=== PATIENT | female | born 1965 | race Caucasian/White ===

== ENCOUNTER 2017-09-15 09:27 | Emergency (ER) | payer OTHER ==
[2017-09-15 09:33] VITALS: BP 183/107
--- NOTE | 2017-09-15 10:10 | ER Document Report ---
ED Extremity Problem, Lower - General Mode of Arrival: Ambulatory Information source: Patient TRAVEL OUTSIDE OF THE [place] IN LAST 30 DAYS: No - HPI Patient complains to provider of: Pain Location: Foot - base of left heel Occurred: Other - 1 week ago Associated symptoms: Other - see notes above <REX MCKEON - Last Filed: 09/15/17 10:35> <MACARIO WALTER - Last Filed: 09/15/17 20:54> - General Chief Complaint: Ankle Pain Stated Complaint: FOOT PAIN Time Seen by Provider: 09/15/17 09:57 Notes: 52-year-old female presents to the ED complaining of left heel pain that started 1 week ago but exacerbated yesterday. Patient reports that the pain is exacerbated with walking and it does not get any better after walking an extended period of time. Patient states that the pain is now radiating up her left posterior calf. Patient denies nausea, vomiting, or fever. 1 year ago patient saw a clinical exercise specialist for possible heel spurs and was told that her Achilles's tendon was acting up instead and was given various exercises to perform to help with the pain. Patient denies any recent falls or injuries. (REX MCKEON) - Related Data Allergies/Adverse Reactions: No Known Allergies Allergy (Unverified 09/15/17 09:29) Home Medications: Current Home Medications Ibuprofen/Pseudoephedrine HCl [Advil Cold & Sinus Caplet] 1 each PO BID PRN 11/01 [History] Past Medical History - General Information source: Patient - Social History Smoking Status: Unknown if Ever Smoked Chew tobacco use (# tins/day): No Frequency of alcohol use: None Drug Abuse: None Patient has suicidal ideation: No Patient has homicidal ideation: No Renal/ Medical History: Denies: Hx Peritoneal Dialysis Past Surgical History: Reports: Hx Orthopedic Surgery - right femur <REX MCKEON - Last Filed: 09/15/17 10:35> - Social History Family History: None <MACARIO WALTER - Last Filed: 09/15/17 20:54> Review of Systems - Review of Systems Constitutional: No symptoms reported EENT: No symptoms reported Cardiovascular: No symptoms reported Respiratory: No symptoms reported Gastrointestinal: No symptoms reported Genitourinary: No symptoms reported Female Genitourinary: No symptoms reported Musculoskeletal: See HPI, Other - left heel pain which radiates up the posterior left calf. Skin: No symptoms reported Hematologic/Lymphatic: No symptoms reported Neurological/Psychological: No symptoms reported -: Yes All other systems reviewed and negative <REX MCKEON - Last Filed: 09/15/17 10:35> Physical Exam - General General appearance: Alert In distress: None - HEENT Head: Normocephalic, Atraumatic Eyes: Normal Extraocular movements intact: Yes Pupils: PERRL - Respiratory Respiratory status: No respiratory distress - Cardiovascular Rhythm: Regular Pulses: Normal: Dorsalis pedis - 2+ - Abdominal Inspection: Normal - Extremities General upper extremity: Normal inspection, Normal color General lower extremity: Normal weight bearing. No: Normal inspection - see foot exam below Foot: Tender - Tenderness to palpation limited to the left heel, Other - No evidence of erythema, induration, contusion, or infection.. No: Normal - Neurological Neuro grossly intact: Yes Cognition: Normal Orientation: AAOx4 [place] Coma Scale Eye Opening: Spontaneous [place] Coma Scale Verbal: Oriented [place] Coma Scale Motor: Obeys Commands [place] Coma Scale Total: 15 Speech: Normal - Psychological Associated symptoms: Normal affect, Normal mood - Skin Skin Temperature: Warm Skin Moisture: Dry Skin Color: Normal <REX MCKEON - Last Filed: 09/15/17 10:35> - Vital signs Vitals: Temp Pulse Resp BP Pulse Ox 97.6 F 83 20 183/107 H 96 09/15/17 09:32 09/15/17 09:32 09/15/17 09:32 09/15/17 09:32 09/15/17 09:32 Course <LINDAREX - Last Filed: 09/15/17 10:35> <MACARIO WALTER - Last Filed: 09/15/17 20:54> - Re-evaluation Re-evalutation: 09/15/17 10:29 Patient appears to have acute on chronic left heel pain consistent with bone spurs. Will provide 5 day Dosepak of steroids and follow-up with primary care physician for reevaluation within the next week. (MACARIO WALTER) - Vital Signs Vital signs: Temp Pulse Resp BP Pulse Ox 97.6 F 83 20 183/107 H 96 09/15/17 09:32 09/15/17 09:32 09/15/17 09:32 09/15/17 09:32 09/15/17 09:32 Discharge <REX MCKEON - Last Filed: 09/15/17 10:35> <MACARIO WALTER - Last Filed: 09/15/17 20:54> - Discharge Clinical Impression: Heel spur Qualifiers: Laterality: right Qualified Code(s): M77.31 - Calcaneal spur, right foot Condition: Stable Disposition: HOME, SELF-CARE Instructions: Plantar Fasciitis or Heel Spur ([facility]) Additional Instructions: Follow up with your primary care provider in 3-5 days or ED if worsening of symptoms. Prescriptions: Prednisone [Deltasone 20 mg Tablet] 2 tab PO DAILY 5 Days #10 tablet Referrals: JONATHON BARKER MD [Primary Care Provider] - Follow up as needed Scribe Documentation - Scribe Written by Jeffe:: Genesis Cesar, 09/15/2017 1052 acting as scribe for :: Param <REX MCKEON - Last Filed: 09/15/17 10:35>
== END 2017-09-15 10:33 | disposition home or self-care (01) ==
LOC: ER 09:27
DX: M77.31 Calcaneal spur, right foot (principal); M79.672 Pain in left foot
CPT/HCPCS: 99283

== ENCOUNTER 2018-11-13 10:49 | Day surgery (SDC) | payer OTHER ==
[~2018-11-13 10:49] MED LIST: LIDOCAINE 2% INJ-PF (20 MG/ML) 10 ML AMPUL ONE; ONDANSETRON HCL INJ/PF 4 MG/2 ML SDV ONE; PROPOFOL INJ 200 MG/20 ML VIAL IV ONE
[2018-11-13] MEDS ORDERED: MIDAZOLAM 2 MG/2 ML INJ ONE (11:57)
[2018-11-13] MEDS ORDERED: FENTANYL CITRATE INJ/PF 100 MCG/2 ML AMPUL IV PRN ×3 (13:59)
[2018-11-13] MEDS ORDERED: MEPERIDINE HCL/PF INJ 25 MG/1 ML DISP.SYRIN IV PRN (13:59)
[2018-11-13] MEDS ORDERED: DIPHENHYDRAMINE HCL 50 MG/ML VIAL IV PRN (13:59)
[2018-11-13] MEDS ORDERED: PROMETHAZINE HCL INJ 25 MG/1 ML VIAL IV PRN ×2 (13:59)
[2018-11-13 14:41] VITALS: BP 152/80
--- NOTE | 2018-11-13 14:47 | Operative Report ---
Operative Report Operative Report: The risks, benefits and alternatives of the procedure including the risk of bleeding, perforation requiring surgery have been explained to the patient in detail and informed consent has been obtained. Patient is brought back to the operating room and placed in a left, lateral decubital position. Timeout was called. Propofol medication is provided. A rectal examination is done which did not reveal any masses, tears or fissures. An Olympus videoscope is inserted to the patient's rectum and it is carefully advanced all the way to the cecum. Cecum was identified by the usual anatomical landmarks including the ileocecal valve as well as the appendiceal office. Photodocumentation was obtained. The scope was then sequentially pulled back through the various segments of the colon including the ascending colon, hepatic flexure, transverse colon, splenic flexure, descending colon and finally into the rectosigmoid portions of the colon. Retroflexion maneuver was performed. PREOPERATIVE DIAGNOSIS: Screening colonoscopy POSTOPERATIVE DIAGNOSIS: Diverticulosis. Internal hemorrhoids. Mild inflammation noted on the right side of the colon status post biopsy OPERATION: Colonoscopy with biopsy SURGEON: WING ROSENBAUM ANESTHESIA: LMAC TISSUE REMOVED OR ALTERED: As noted above. COMPLICATIONS: None. ESTIMATED BLOOD LOSS: None. INTRAOPERATIVE FINDINGS: As noted above. PROCEDURE: Patient tolerated the procedure well. No immediate postprocedure complications are noted. Patient discharged in good condition. Discharge date 11/13/2018. Discharge diet: Regular. Discharge activity: Regular. 2-3-week follow-up to discuss findings. Patient is instructed to call the office or proceed to the emergency room should there be any further problems or questions. I will wait on the pathology.
== END 2018-11-13 14:30 | disposition home or self-care (01) ==
LOC: OROUT 10:49
PROVIDERS: ATTEND Internal Medicine Gastroenterology
DX: Z12.11 Encounter for screening for malignant neoplasm of colon (principal); K52.9 Noninfective gastroenteritis and colitis, unspecified; K57.30 Diverticulosis of large intestine without perforation or abscess without bleeding; K64.8 Other hemorrhoids; E78.5 Hyperlipidemia, unspecified; I10 Essential (primary) hypertension; E66.9 Obesity, unspecified; Z79.899 Other long term (current) drug therapy; Z88.6 Allergy status to analgesic agent; Z68.41 Body mass index [BMI] 40.0-44.9, adult; Z79.82 Long term (current) use of aspirin
CPT/HCPCS: 45380; 36415; 84132; 88305 ×2; J2250; J2405; J2704; J3490; 811